=== PATIENT | female | born 1970 | race Two or more races ===

== ENCOUNTER 2024-12-15 19:52 | Emergency (ER) | payer BC, MEDICAID, SELFPAY ==
[2024-12-15 20:05] VITALS: BP 166/90; PULSE 95; RESP 18; TEMP 36.9; O2SAT 98
[2024-12-15 20:16] VITALS: PULSE 104; RESP 30
--- NOTE | 2024-12-15 20:25 | EDNOTE_ITS ---
ED General RME/HPI General Chief complaint: General Adult/Misc Complain Stated complaint: WEAKNESS/ HYPERTENSION Time Seen by Provider: 12/15/24 20:11 Arrival date/time: 12/15/24 19:52 RME / HPI RME / HPI narrative: 53-year-old female patient came in for evaluation regarding generalized body weakness. This been ongoing since yesterday, associated with headache, and elevated blood pressure. When the EMS arrived patient blood pressure was noted to be above 200 systolic. Patient is denying any cough denies any sore throat denies any chest pain denies any back pain or other complaints. No medications taken prior to arrival. Related Data Home Medications ?Medication ?Instructions ?Recorded ?Confirmed lisinopril 20 mg tablet 40 mg PO QDAY 08/20/2008/20 Previous Rx's ?Medication ?Instructions ?Recorded acetaminophen 500 mg tablet 1,000 mg (2 x 500 mg) PO Q ID PRN 08/20/20 (Tylenol Extra Strength) fever or pain #60 tabs azithromycin 250 mg tablet See Rx Instructions PO .COM PLEX #6 08/20/20 tabs meclizine 50 mg tablet 50 mg PO BID PRN dizziness # 20 tabs 12/15/24 Allergies Allergy/AdvReac Type Severity Reaction Status Date / Time No Known Allergies Allergy Verified 12/15/24 20:16 Review of Systems Review of Systems Narrative Review of Systems: Review of system reviewed and within normal limits except mentioned in HPI ED Exam Narrative Physical exam: VITAL SIGNS: Reviewed. GENERAL APPEARANCE: Alert and interactive, follows commands, no acute distress, HEAD AND FACE: Non-traumatic. ENT: PERRL, pink conjunctivitis, eyelid no trauma, Mucous membrane moist. NECK: Supple, nontender, no nuchal rigidity. CHEST: No tenderness, no crepitus, no paradoxical movement, no retractions. LUNGS: Clear, well ventilated, symmetric, no rales, no wheezing, no ronchi, no stridor, good breath sounds bilaterally. HEART: Regular rate, regular rhythm, no murmur, no gallops. ABDOMEN: Soft, positive bowel sounds, nondistended, no guarding, nontender, no rebound, no masses, RECTAL: Deferred. GENITAL: Deferred. NEUROLOGICAL: Gross motor function intact sensory function intact, Appropriate for age. MUSCULOSKELETAL: low back nontender, full range of motion. EXTREMITIES: Nontender, full range of motion. SKIN: Color pink, dry, no rash, no lacerations, no abrasions, no contusions. LYMPHATICS: Deferred. Course Quality Measures none Orders Category Date Time Status Bedside COVID-19 Antigen Test NOW Care 12/15/24 20:24 Active Bedside Influenza A&B Antigen Test NOW Care 12/15/24 20:24 Active CBC [CBC] Stat Lab 12/15/24 21:13 Completed CMP [Comprehensive Metabolic Panel] Stat Lab 12/15/24 21:13 Completed UA, C/S IF [Urinalysis, C/S if Indicated] Stat Lab 12/15/24 20:25 Ordered Acetaminophen Tab [Tylenol ES Tab] Med 12/15/24 20:24 Discontinued 1,000 mg PO X1 ONE cloNIDine HCL [Catapres] Med 12/15/24 22:53 Discontinued 0.1 mg PO X1 ONE Vital Signs Vital signs: Vital Signs Temperature 98.4 F 12/15/24 20:05 Pulse Rate 95 12/15/24 20:05 Respiratory Rate 18 12/15/24 20:05 Blood Pressure 166/90 H 12/15/24 20:05 Pulse Oximetry (%) 98 12/15/24 20:05 Oxygen Delivery Method Room Air 12/15/24 20:05 MDM Patient data External records reviewed:: None Clinical information provided by:: patient Social determinants that could affect healthcare access:: none Patient has the following chronic illnesses:: Hypertension How is presenting disease/condition affected by chronic disease/condition?: u neffected by Evaluation data The following diagnostics were reviewed and interpreted by me:: lab results Lab and/or radiology exams considered but not ordered:: None Interpretation Summary: Laboratory workup all, unremarkable Medications Medications considered but not ordered:: none Medication administrations:: Medication Administration History Discontinued Medications Acetaminophen (Acetaminophen 500 Mg Tablet) 1,000 mg PO X1 ONE Stop: 12/15/24 20:25 Last Admin: 12/15/24 20:55 Dose: 1,000 mg Documented By: YONI Clonidine (Clonidine Hcl 0.1 Mg Tablet) 0.1 mg PO X1 ONE Stop: 12/15/24 22:54 Last Admin: 12/15/24 23:10 Dose: 0.1 mg Documented By: CB Clonidine and Tylenol Consultations Consultation(s) initiated? (list below): No Diagnosis Differential Diagnosis ED Complaint MDM: Dizziness, hypertension, anxiety Most likely diagnosis given after review of the tests above:: Dizziness, hypertension Admission Indicated Admission indicated?: not indicated Explain why admission is indicated or not indicated:: Stable Admission Request Was there a request for admission?: No Disposition Plan Disposition Plan: Discharge Discharge Attestation Discharge Attestation: The patient and all family members were given an opportunity to ask questions and understood the discharge instructions. Discharge instructions specifically effects, indications for sooner follow up or return to the emergency department, and the expected course of current diagnosis. Patient condition: Stable Medical Decision Making MDM Narrative MDM Narrative: 53-year-old female patient came in for evaluation regarding generalized body weakness. This been ongoing since yesterday, associated with headache, and elevated blood pressure. When the EMS arrived patient blood pressure was noted to be above 200 systolic. Patient is denying any cough denies any sore throat denies any chest pain denies any back pain or other complaints. No medications taken prior to arrival. Patient's workup today all came back unremarkable Patient's blood pressure was noted to be 161/90 prior to discharge taken by me. Prior to discharge patient told me that her dizziness is completely gone Differential Diagnosis Differential Diagnosis: Dizziness, hypertension, anxiety Lab Data 12/15/24 21:13 12/15/24 21:13 Labs: Lab Results 12/15/24 Range/Units 21:13 WBC 9.1 (3.6-11.0) Thou/mm3 RBC 4.47 (4.00-5.20) Miln/mm3 Hgb 12.8 (12.0-16.0) g/dL Hct 37.2 (36.0-46.0) % MCV 83 (80-100) fL MCH 28.6 (25.0-35.0) pg MCHC 34.4 (31.0-37.0) g/dl RDW Std Deviation 39.9 (36.4-46.3) fL Plt Count 352 (140-440) Thou/mm3 Neut % (Auto) 61 (37-80) % Lymph % (Auto) 24 (10-50) % [place] % (Auto) 8 (0-12) % Eos % (Auto) 7 (0-10) % Baso % (Auto) 1 (0-2.5) % Neut # (Auto) 5.5 (1.8-7.7) Thou/mm3 Lymph # (Auto) 2.2 (1.0-4.8) Thou/mm3 [place] # (Auto) 0.7 (0.0-0.8) Thou/mm3 Eos # (Auto) 0.7 H (0.0-0.5) Thou/mm3 Baso # (Auto) 0.1 (0.0-0.2) Thou/mm3 Immature Gran # (Auto) 0.02 H (0.00-0.00) Thou/mm3 Absolute Nucleated RBC 0.00 (0.00-0.00) Thou/mm3 Immature Gran % 0 (0-0) % Nucleated RBC % 0 (0) /100 WBC Sodium 140 (136-145) mMol/L Potassium 3.2 L (3.4-5.1) mMol/L Chloride 105 (98-107) mMol/L Carbon Dioxide 24.7 (20.0-31.0) mMol/L Anion Gap 10 (7-16) BUN 18 (9-23) mg/dL Creatinine 0.9 (0.6-1.3) mg/dL Estim Creat Clear Calc Not Performed. eGFR > 60 (60 - ) See Note BUN/Creatinine Ratio 20 (12-20) Ratio Glucose 164 H (74-106) mg/dL Calculated Osmolality 285 (275-295) Calcium 9.8 (8.3-10.6) mg/dL Corrected Calcium 9.8 (8.5-10.1) mg/dL Total Bilirubin 0.3 (0.3-1.2) mg/dL AST 26 (0-34) U/L ALT 28 (10-49) U/L Alkaline Phosphatase 123 H (46-116) U/L Total Protein 8.1 (5.7-8.2) gm/dL Albumin 4.6 (3.5-5.0) gm/dL Globulin 3.5 (2.3-3.5) gm/dL Albumin/Globulin Ratio 1.3 (1.2-2.2) Discharge Plan Plan Patient Disposition: HOME (Self Care) Disposition Comment: Stable Prescriptions/Referrals Prescriptions/Med Rec: New meclizine 50 mg tablet 50 mg PO BID PRN (Reason: dizziness) Qty: 20 0RF No Action lisinopril 20 MG tablet 40 mg PO QDAY azithromycin 250 mg tablet See Rx Instructions .ROUTE .COMPLEX Qty: 6 0RF Rx Instructions: take 500 mg today (day 1), then 250 mg for 4 days (days 2-5) acetaminophen [Tylenol Extra Strength] 500 mg tablet 1,000 mg PO QID PRN (Reason: fever or pain) Qty: 60 0RF Referrals: Abel Hernandez MD [Primary Care Provider] - In 1 week Problem List Clinical Impression: Dizziness, Hypertension Patient/Caregiver Discharge Instructions Discharge Activity: activity as tolerated Education Materials: ED Dizziness, Uncertain Cause Additional Instructions: Thank you for the opportunity for serving you today. You are stable for discharged . 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
[2024-12-15] MEDS: ACETAMINOPHEN 500 MG TABLET 1000 MG PO (20:55)
[2024-12-15 21:33] LABS: Basophils # (Auto) 0.1 Thou/mm3 (0.0-0.2); Basophils % (Auto) 1 % (0-2.5); Eosinophils # (Auto) 0.7 Thou/mm3 (0.0-0.5); Eosinophils % (Auto) 7 % (0-10); Hematocrit 37.2 % (36.0-46.0); Hemoglobin 12.8 g/dL (12.0-16.0); Immature Granulocytes % (Auto) 0 % (0-0); Immature Granulocytes Auto 0.02 Thou/mm3 (0.00-0.00); Lymphocytes # (Auto) 2.2 Thou/mm3 (1.0-4.8); Lymphocytes % (Auto) 24 % (10-50); Mean Corpuscular HGB Conc 34.4 g/dl (31.0-37.0); Mean Corpuscular Hemoglobin 28.6 pg (25.0-35.0); Mean Corpuscular Volume 83 fL (80-100); Monocytes # (Auto) 0.7 Thou/mm3 (0.0-0.8); Monocytes % (Auto) 8 % (0-12); Neutrophils # (Auto) 5.5 Thou/mm3 (1.8-7.7); Neutrophils % (Auto) 61 % (37-80); Nucleated Red Blood Cell % 0 /100 WBC (0); Platelet Count 352 Thou/mm3 (140-440); RDW Standard Deviation 39.9 fL (36.4-46.3); Red Blood Count 4.47 Miln/mm3 (4.00-5.20); White Blood Count 9.1 Thou/mm3 (3.6-11.0)
[2024-12-15 21:51] LABS: Alanine Aminotransferase 28 U/L (10-49); Albumin, Serum 4.6 gm/dL (3.5-5.0); Albumin/Globulin Ratio 1.3 (1.2-2.2); Alkaline Phosphatase 123 U/L (46-116); Anion Gap 10 (7-16); Aspartate Amino Transferase 26 U/L (0-34); BUN/Creatinine Ratio 20 Ratio (12-20); Bilirubin,Total 0.3 mg/dL (0.3-1.2); Blood Urea Nitrogen 18 mg/dL (9-23); Calcium 9.8 mg/dL (8.3-10.6); Calcium (Corrected) 9.8 mg/dL (8.5-10.1); Carbon Dioxide 24.7 mMol/L (20.0-31.0); Chloride 105 mMol/L (98-107); Creatinine (Component) 0.9 mg/dL (0.6-1.3); Globulin 3.5 gm/dL (2.3-3.5); Glucose 164 mg/dL (74-106); Osmolality,Calculated 285 (275-295); Potassium 3.2 mMol/L (3.4-5.1); Sodium 140 mMol/L (136-145); Total Protein 8.1 gm/dL (5.7-8.2); eGFR > 60 See Note
[2024-12-15 22:04] VITALS: BP 180/82; PULSE 89; RESP 17; TEMP 36.9; O2SAT 99
[2024-12-15 23:10] VITALS: BP 180/82; PULSE 89
[2024-12-15] MEDS: cloNIDine HCL 0.1 MG TABLET PO (23:10)
[2024-12-15 23:31] LABS: Collection Type, Urine Clean Catch
[2024-12-15 23:37] LABS: Bacteria,Urine Rare; Bilirubin,Urine Negative (Negative); Blood,Urine 1+ (Negative); Clarity,Urine Clear (Clear/Hazy); Color,Urine Lt-Yellow (Lt Yel-Yel); Culture Indicated,Urine Not Indicated; Glucose, Urine Negative (Negative); Ketones,Urine Negative (Negative); Leukocyte Esterase,Urine Positive (Negative); Nitrite,Urine Negative (Negative); PH,Urine 6.5 (5.0-7.0); Protein,Urine Trace (Neg - Trace); RBC,Urine 6 /hpf (0-3); Specific Gravity,Urine 1.025 (1.001-1.035); Squamous Epithelial Cell,Urine 2 /hpf (0-5); Urobilinogen,Urine Negative mg/dL (0.0-1.0); WBC,Urine 2 /hpf (0-5)
== END 2024-12-15 23:32 | disposition home or self-care (01) ==
PROVIDERS: Nurse Practitioner Family; Emergency Provider Emergency Medicine; PCP Family Medicine
DX: R42 Dizziness and giddiness (principal); I10 Essential (primary) hypertension
CPT/HCPCS: 36415; 80053; 81001; 85025; 87400; 87811; 99283; A9270